=== PATIENT | male | born 1950 | race Caucasian/White ===

== ENCOUNTER → 2017-10-17 | Outpatient (CLI) | payer MEDICARE, OTHER ==
[~2017-10-17] MED LIST: PRILOSEC40 MG
--- NOTE | 2017-11-01 23:20 | ONC ---
[address] [address] RADIATION ONCOLOGY NOTE Name: CHRIS MCNALLY Room: [facility]#: [id number] Admission: 10/17/17 Attend Phys: Dl Sims MD Discharge: Date of : 54 Report #: [id number] THIS REPORT FOR: //name// CC: Dl Wilkins MD DATE OF SERVICE: 10/17/2017 RADIATION ONCOLOGY PROCEDURE NOTE [facility] phone is [phone]. REFERRING PHYSICIANS: Include: 1. Dr. Wilkins. 2. Dr. Tera Monsalve. 3. Dr. Shey Pendleton. PRIMARY SITE AND HISTOPATHOLOGY: The patient received chemotherapy and radiation therapy for a stage III base of tongue cancer. The radiation therapy was completed on 02/02/2013. PROCEDURE: Nasopharyngolaryngoscopy. FINDINGS: On nasopharyngolaryngoscopy, after administration of a small amount of 2% viscous lidocaine orally and 2% viscous lidocaine via a cotton swab to the left nostril, there were no visible lesions in the nasopharynx. There were no visible lesions in the hypopharynx. There were no visible lesions at the base of tongue. The true vocal cords were normally mobile, without visible lesions. There was no evidence of head and neck cancer. Thank you for allowing me to participate in the care of this patient. <ELECTRONICALLY SIGNED> By: Dl Sims MD 11/01/17 2320 [id number] [id number] Sims MD /nt
--- NOTE | 2017-11-01 23:47 | ONC ---
[place] [address] RADIATION ONCOLOGY NOTE Name: CHRIS MCNALLY Room: [facility]#: [id number] Admission: 10/17/17 Attend Phys: Dl Sims MD Discharge: Date of : 54 Report #: [id number] THIS REPORT FOR: //name// CC: Dl Pendleton MD DATE OF SERVICE: 10/17/2017 REFERRING PHYSICIANS: Ailyn Wilkins MD; Shey Pendleton MD [facility] phone is [phone]. PRIMARY SITE AND HISTOPATHOLOGY: The patient received definitive chemotherapy and radiation therapy for a stage III base of tongue cancer. The radiation therapy was completed on 02/02/2013. INTERVAL NOTE: The patient stopped coming in for followup because of insurance reasons and now he indicated that he is on Medicare, so he resumed followup and the patient felt like he was eating well. He has occasional arthritic type discomfort in the left neck and he has xerostomia, so he can have the tongue discomfort because of the xerostomia and otherwise he tends to eat moist foods. He likes to eat chicken and sometimes meats with gravies and fruits. He had a neck CT on 11/28/2016, which showed post-treatment thickening in the treated area of the aryepiglottic fold, which was minimal and he had cervical spondylosis with some spinal canal stenosis and neural foraminal narrowing. SOCIAL HISTORY: The patient is retired. Cigarettes: The patient does not smoke cigarettes. REVIEW OF SYSTEMS: RESPIRATORY: The patient was not short of breath. GASTROINTESTINAL: He has a good appetite. PHYSICAL EXAMINATION: VITAL SIGNS: The patient weighed 235 pounds on 10/17/2017, 231.8 pounds on 10/10/2014. On 10/17/2017, blood pressure was 132/91, pulse 64, oxygen saturation 96% on room air. LYMPH NODES: No palpable cervical or supraclavicular lymphadenopathy. HEAD, EYES, EARS, NOSE AND THROAT: Mouth had no suspicious visible lesions or suspicious palpable lesions. On nasopharyngolaryngoscopy, after administration of small amount of 2% viscous lidocaine orally and 2% viscous lidocaine via cotton swab in the left nostril, there were no visible lesions in the nasopharynx. There were no visible lesions in the hypopharynx. [place] [address] RADIATION ONCOLOGY NOTE Name: CHRIS MCNALLY Room: [facility]#: [id number] Admission: 10/17/17 Attend Phys: Dl Sims MD Discharge: Date of : 54 Report #: [id number] of the base of tongue. The true vocal cords were normally mobile bilaterally without visible lesions. HEART: Had a regular rate and rhythm without murmur. LUNGS: were clear to auscultation. MEDICATIONS: He takes omeprazole and atorvastatin. LABORATORY DATA: From 04/25/2017, BUN was 16, creatinine 1.25, sodium 141, potassium 4.1, AST was 18 and white blood count was 16.2, platelets were 240,000 and on 03/06/2007, his TSH was 3.84. ASSESSMENT: 1. History of stage III base of tongue cancer- There is no evidence of base of tongue cancer at this time. A requisition was placed for a basic metabolic panel and TSH, as well as a neck CT and chest CT with contrast in 11/2017 or 12/2017. He was asked to schedule a followup appointment to see me afterwards. 2. Hyperlipidemia- The patient takes atorvastatin that is managed by his referring physicians. 3. Dentition- The patient was given a refill for his PreviDent, and he was told to use it for dental care. 4. Gastroesophageal reflux- The patient takes omeprazole and that is managed by his referring physicians. Thank you for allowing me to participate in the care of this patient. <ELECTRONICALLY SIGNED> By: Dl Sims MD 11/01/17 2347 1750 [id number] Sims MD /nt
== END ==
LOC: M.RTH 10-03 09:30
DX: K21.9 Gastro-esophageal reflux disease without esophagitis (principal); E78.5 Hyperlipidemia, unspecified; Z85.810 Personal history of malignant neoplasm of tongue

== ENCOUNTER → 2017-11-14 | Outpatient (CLI) | payer MEDICARE, OTHER | LOC: M.LAB 10:00 → M.CT 10:00 | DX: J98.4 Other disorders of lung (principal); I25.10 Atherosclerotic heart disease of native coronary artery without angina pectoris; K76.0 Fatty (change of) liver, not elsewhere classified; Z85.810 Personal history of malignant neoplasm of tongue; Z85.819 Personal history of malignant neoplasm of unspecified site of lip, oral cavity, and pharynx ==

== ENCOUNTER → 2017-11-19 | Outpatient (CLI) | payer MEDICARE, OTHER ==
--- NOTE | 2017-11-29 17:43 | ONC ---
[place] [address] RADIATION ONCOLOGY NOTE Name: CHRIS MCNALLY Room: [facility]#: [id number] Admission: 11/19/17 Attend Phys: Dl Sims MD Discharge: Date of : 54 Report #: [id number] THIS REPORT FOR: //name// CC: Dl Pendleton MD DATE OF SERVICE: 11/19/2017 REFERRING PHYSICIANS: Ailyn Wilkins MD; Tera Monsalve MD and Shey Pendleton MD. [facility] phone is [phone]. PRIMARY SITE AND HISTOPATHOLOGY: The patient received definitive chemotherapy and radiation therapy for a stage III base of tongue cancer. The radiation therapy was completed on 02/02/2013. INTERVAL NOTE: The patient has xerostomia. He eats moist foods. He likes to eat chicken and other meats with gravy. He also likes to eat fruits. MEDICATIONS: Include omeprazole and atorvastatin. SOCIAL HISTORY: The patient is retired. Cigarettes: The patient does not smoke cigarettes. REVIEW OF SYSTEMS: RESPIRATORY: The patient was not short of breath. GASTROINTESTINAL: He has a good appetite. PHYSICAL EXAMINATION: VITAL SIGNS: The patient weighed 236.4 pounds on 11/19/2017 and 235 pounds on 10/17/2017. On 11/19/2017, blood pressure was 128/80, pulse 81, respirations 18, oxygen saturation 93%. LYMPH NODES: No palpable cervical or supraclavicular lymphadenopathy. HEAD, EYES, EARS, NOSE AND THROAT: Mouth had no suspicious visible lesions or suspicious palpable lesions. There were no suspicious palpable lesions over the tongue area. HEART: Had a regular rate and rhythm without murmur. LUNGS: were clear to auscultation. LABORATORY DATA: From 11/04/2017, BUN 14, creatinine 1.22, sodium 141, potassium 4.1. [place] 3[place]62. [place] [address] RADIATION ONCOLOGY NOTE Name: DALICHRIS Fabiano Room: [facility]#: [id number] Admission: 11/19/17 Attend Phys: Dl Sims MD Discharge: Date of : 54 Report #: [id number] RADIOLOGIC DATA: Neck CT from 11/14/2017 showed no evidence for tumor recurrence. Chest CT from 11/14/2017 revealed nothing to suggest pulmonary metastatic involvement. There was no acute chest process. ASSESSMENT AND PLAN: 1. History of head and neck cancer- There is no evidence of head and neck cancer at this time. The patient had a basic metabolic panel and TSH ordered in about 07/2018. The patient was asked to schedule a follow up appointment to see me afterwards. 2. Dentition- The patient had been previously given a refill for PreviDent fluoride gel 1.1% to use for dental care. 3. Hyperlipidemia- The patient takes atorvastatin and that is managed by his referring physicians. Thank you for allowing me to participate in the care of this patient. <ELECTRONICALLY SIGNED> By: Dl Sims MD 11/29/17 1743 1206 [id number] Sims MD /nt
== END ==
LOC: M.RTH 05:10
DX: E78.5 Hyperlipidemia, unspecified (principal); Z85.89 Personal history of malignant neoplasm of other organs and systems; Z79.899 Other long term (current) drug therapy

== ENCOUNTER → 2018-07-24 | Outpatient (CLI) | payer MEDICARE, OTHER ==
--- NOTE | ~2018-07-24 | ONC ---
[facility] [address] [place] [address] RADIATION ONCOLOGY NOTE Name: CHRIS MCNALLY Room: [facility]#: [id number] Admission: 07/24/18 Attend Phys: Dl Sims MD Discharge: Date of : 54 Report #: [id number] THIS REPORT FOR: //name// CC: Dl Wilkins DATE OF SERVICE: 07/24/2018 REFERRING PHYSICIANS: Include Ailyn Wilkins M.D.; Robby Avila M.D.; Shey Pendleton M.D.; and Dr. Johan Gaytan. [facility] phone is [phone]. PRIMARY SITE AND HISTOPATHOLOGY: The patient received chemotherapy and radiation therapy for stage III base of tongue cancer. The radiation therapy was completed on 02/02/2013. PROCEDURE: Nasopharyngolaryngoscopy. FINDINGS: On nasopharyngolaryngoscopy, after administration of a small amount of 2% viscous lidocaine orally and 2% viscous lidocaine via cotton swab to the left nostril, there were no visible lesions in the nasopharynx. There were no visible lesions in the hypopharynx. There were no visible lesions in the base of tongue. The true vocal cords are normally mobile bilaterally without visible lesion. There was no evidence of head and neck cancer. Thank you for allowing me to participate in the care of this patient. By: 1235 1929MD trena Krause
--- NOTE | ~2018-07-24 | ONC ---
[place] [address] RADIATION ONCOLOGY NOTE Name: CHRIS MCNALLY Room: [facility]#: [id number] Admission: 07/24/18 Attend Phys: Dl Sims MD Discharge: Date of : 54 Report #: [id number] THIS REPORT FOR: //name// CC: Dl Wilkins DATE OF SERVICE: 07/24/2018 REFERRING PHYSICIANS: Include Ailyn Wilkins MD; Tera Monsalve MD; Shey Pendleton MD. [facility] phone is [phone]. PRIMARY SITE AND HISTOPATHOLOGY: The patient received definitive radiation therapy and chemotherapy for stage 3 base of tongue cancer. The radiation therapy was completed on 02/02/2013. INTERVAL NOTE: The patient has xerostomia. He eats moist foods. He likes to eat regular foods such as chicken and other meats with gravy. He also likes to eat fruit. He is applying fluoride to his teeth with fluoride trays. MEDICATIONS: Include omeprazole and atorvastatin. SOCIAL HISTORY: The patient is retired. Cigarettes: The patient does not smoke cigarettes. REVIEW OF SYSTEMS: RESPIRATORY: The patient was not short of breath. GASTROINTESTINAL: The patient has a good appetite. PHYSICAL EXAMINATION: VITAL SIGNS: The patient weighed 248.2 pounds on 07/24/2018 and 236.4 pounds on 11/19/2017 and on 07/24/2018, blood pressure was 119/83, pulse 69, respirations 18, oxygen saturation 95%. LYMPH NODES: The patient has no palpable cervical or supraclavicular lymphadenopathy. HEAD, EYES, EARS, NOSE AND THROAT: Mouth had no suspicious visible lesions or suspicious palpable lesions. There were no suspicious palpable lesions over the tongue area. HEART: Had a regular rate and rhythm without murmur. LUNGS: Clear to auscultation. LABORATORY DATA: From 06/11/2018, cholesterol was 127, BUN was 13, creatinine 1.15. Sodium 137, potassium 4.1. AST 19, ALT 19. TSH 2.12. White blood cell count was 5.3. [place] 8.0[place] [address] RADIATION ONCOLOGY NOTE Name: CHRIS MCNALLY Room: [facility]#: [id number] Admission: 07/24/18 Attend Phys: Dl Sims MD Discharge: Date of : 54 Report #: [id number] RADIOLOGIC DATA: The patient had a neck CT on 11/14/2017, which showed no evidence of tumor recurrence. ASSESSMENT AND PLAN: 1. History of head and neck cancer. There is no evidence of head and neck cancer at this time. Requisition was written for TSH to be done in about one year and the patient was asked to schedule a followup appointment to see me afterwards. 2. Dentition. The patient was given a refill for PreviDent fluoride gel to use for dental care. 3. Hyperlipidemia. The patient takes atorvastatin and that is managed by his referring physicians. 4. Elevated prostate specific antigen - the patient indicated that he has had a chronically elevated prostate specific antigen and that is followed by both his primary care physician and the urologist, Dr. Gaytan and he indicated that at least this point, the urologist felt that this was due to benign causes. He says that he has that followed about every six months by his primary care physician. Thank you for allowing me to participate in the care of this patient. By: [id number] [id number] Sims MD /[place]
== END ==
LOC: M.RTH 07-22 10:15
DX: Z08 Encounter for follow-up examination after completed treatment for malignant neoplasm (principal); E78.5 Hyperlipidemia, unspecified; R97.20 Elevated prostate specific antigen [PSA]; Z85.89 Personal history of malignant neoplasm of other organs and systems